=== PATIENT | female | born 1975 | race African-American/Black ===

== ENCOUNTER 2017-08-04 11:16 | Outpatient (CLI) | payer OTHER ==
--- NOTE | 2017-08-04 11:56 | Mammography Report ---
Screening mammogram: Baseline examination. Routine views demonstrate a heterogeneously dense and symmetrically distributed fibroglandular pattern. There is a focal area of questionable masslike density in the upper-outer left breast. With this exception the findings are generally unremarkable. CAD used. Impression: Left breast asymmetry. Recommendation: Additional compression images of the left breast and ultrasound if needed. BI-RADS CATEGORY: 0 = Needs additional imaging evaluation ACR BI-RADS MAMMOGRAPHIC CODES: 0 = Needs additional imaging evaluation; 1 = Negative; 2 = Benign; 3 = Probably benign; 4 = Suspicious; 5 = Malignant; 6 = Known biopsy-proven malignancy COMMENT: 1. Dense breast tissue, i.e., adenosis, fibrocystic changes, etc., may obscure an underlying neoplasm. 2. Approximately 10% of cancers are not detected with mammography. 3. A negative mammography report should not delay biopsy if a clinically suspicious mass is present.
== END 2017-08-04 11:17 | disposition home or self-care (01) ==
LOC: MAMMO 11:16
PROVIDERS: ATTEND Internal Medicine
DX: Z12.31 Encounter for screening mammogram for malignant neoplasm of breast (principal)
CPT/HCPCS: 77067; G0202